=== PATIENT | female | born 1995 | race Caucasian/White ===

== ENCOUNTER 2016-07-24 23:54 | Emergency (ER) | payer OTHER ==
[~2016-07-24] VITALS: Ht 170.2 cm; Wt 81.8 kg
[~2016-07-24 23:54] MED LIST: AMOXICILLIN 50500 MG PO; BENADRYL50 MG PO; BIRTH CONTROL PILLS; FLEXERIL 1010 MG/TAB PO; MEDROL 4MG DOSPA4 MG PO; NAPROSYN500 MG PO; NAPROXEN 3375 MG/TAB PO; NORCO 325 MG-51 TAB PO; PREDNISONE20 MG PO; PROAIR HFA0.09 MG/AC IH; STROMECTOL3 MG PO; ULTRAM 50MG TAB50 MG PO; VENTOLIN0.09 MG IH; ZOFRAN 4MG T4 MG/TAB PO; ZYRTEC 10MG10 MG PO
[2016-07-24 23:56] VITALS: BP 148/86; PULSE 110; TEMP 97.7
[2016-08-14] MEDS ORDERED: AMOXICILLIN 50500 MG PO (18:44)
== END 2016-07-25 00:53 | disposition home or self-care (01) ==
LOC: COL.ER 23:54
DX: H10.9 Unspecified conjunctivitis (principal)

== ENCOUNTER 2016-08-12 23:54 | Emergency (ER) | payer SELFPAY ==
[~2016-08-12] VITALS: Ht 170.2 cm; Wt 84.1 kg
[2016-08-12 23:57] VITALS: BP 136/75; TEMP 98.3
[2016-08-13 00:40] LABS: INFLUENZA B NEGATIVE
[2016-08-13 00:45] VITALS: PULSE 108
[2016-08-14] MEDS ORDERED: AMOXICILLIN 50500 MG PO (18:44)
== END 2016-08-13 00:46 | disposition home or self-care (01) ==
LOC: COL.ER 23:54
PROVIDERS: Physician Assistant
DX: J06.9 Acute upper respiratory infection, unspecified (principal); J45.909 Unspecified asthma, uncomplicated; F17.210 Nicotine dependence, cigarettes, uncomplicated

== ENCOUNTER 2016-08-18 05:57 | Emergency (ER) | payer SELFPAY ==
[~2016-08-18] VITALS: Ht 170.2 cm; Wt 84.1 kg
[2016-08-18 05:59] VITALS: BP 158/76; PULSE 109; TEMP 98.6
[2016-08-18] MEDS ORDERED: NORCO 325 MG-51 TAB PO (06:24)
[2016-08-18] MEDS ORDERED: AMOXICILLIN 50500 MG PO (06:24)
== END 2016-08-18 06:30 | disposition home or self-care (01) ==
LOC: COL.ER 05:57
DX: K08.89 Other specified disorders of teeth and supporting structures (principal); F17.210 Nicotine dependence, cigarettes, uncomplicated; M25.511 Pain in right shoulder; G89.29 Other chronic pain

== ENCOUNTER 2016-09-02 23:05 | Emergency (ER) | payer SELFPAY ==
[~2016-09-02] VITALS: Ht 170.2 cm; Wt 79.5 kg
[2016-09-02 23:24] VITALS: BP 141/70; TEMP 98.2
[2016-09-03] MEDS ORDERED: NORCO 325 MG-51 TAB PO (00:49)
[2016-09-03] MEDS ORDERED: BACTRIM DS 8001 TAB PO (00:49)
[2016-09-03 01:09] VITALS: PULSE 90
== END 2016-09-03 01:10 | disposition home or self-care (01) ==
LOC: COL.ER 23:05
DX: L02.416 Cutaneous abscess of left lower limb (principal)

== ENCOUNTER 2018-05-31 23:33 | Emergency (ER) | payer SELFPAY ==
[~2018-05-31] VITALS: Ht 170.2 cm; Wt 96.4 kg
[~2018-05-31 23:33] MED LIST changes: +BACTRIM DS 8001 TAB PO
[2018-05-31 23:36] VITALS: TEMP 98.7
[2018-05-31 23:59] VITALS: BP 133/90
[2018-06-01 00:05] LABS: BASO % 0.4 % (0.0-2.0); EOS # 0.1 (0.0-0.7); EOS % 0.6 % (0-4.0); GRAN # 6.1 (1.4-6.5); HEMATOCRIT 40.7 % (37.0-47.0); LYMPH # 2.8 (1.2-3.4); LYMPH % 29.7 % (20.0-51.0); MEAN CELL VOLUME 89 fl (80.0-100.0); MEAN CORPUSCULAR HEMOGLOBIN 28 pg (27.0-31.0); MEAN CORPUSCULAR HGB CONC 32 g/dl (33.0-37.0); MEAN PLATELET VOLUME 10.1 fl (7.4-10.4); MONO # 0.5 (0.1-0.6); MONO % 5.1 % (1.7-9.3); PLATELET COUNT 312 K/mm3 (130-400); RED BLOOD COUNT 4.58 M/mm3 (4.10-5.30); REDCELL DISTRIBUTION WIDTH-CV 13.2 % (11.5-14.5)
[2018-06-01 00:26] LABS: ALANINE AMINOTRANSFERASE 26 U/L (9-52); ALBUMIN 3.7 gm/dL (3.5-5.0); ALKALINE PHOSPHATASE 92 U/L (50-136); ANION GAP 4 mmol/L (7-16); AST,SGOT 17 U/L (15-37); BILIRUBIN,TOTAL < 0.1 mg/dL (0.0-1.0); BLOOD UREA NITROGEN 6 mg/dL (7-17); CALCIUM 8.8 mg/dL (8.4-10.2); CARBON DIOXIDE 30 mmol/L (22-30); CHLORIDE 108 mmol/L (98-107); CREATININE, serum 0.74 mg/dL (0.52-1.25); GLUCOSE 110 mg/dL (74-106); POTASSIUM 4.2 mmol/L (3.4-5.0); SODIUM 143 mmol/L (137-145)
[2018-06-01 00:38] LABS: COLLECTION METHOD CLEAN CATCH
[2018-06-01 00:44] LABS: MUCOUS Present /lpf; PH 7 (5-8); SQUAMOUS EPITHELIAL 0-2 /hpf; URINE APPEARANCE Clear; URINE BACTERIA None Seen /hpf; URINE BILIRUBIN Negative (NEGATIVE); URINE BLOOD Negative (NEGATIVE); URINE COLOR Yellow; URINE GLUCOSE Negative (NEGATIVE); URINE KETONE Negative (NEGATIVE); URINE LEUKOCYTE ESTERASE Negative (NEGATIVE); URINE NITRATE Negative (NEGATIVE); URINE PROTEIN(semi-quant) Negative (NEGATIVE); URINE RBC 0-2 /hpf
[2018-06-01 01:10] VITALS: PULSE 86
== END 2018-06-01 01:10 | disposition home or self-care (01) ==
LOC: COL.ER 23:33
PROVIDERS: Emergency Medicine
DX: R10.10 Upper abdominal pain, unspecified (principal); J45.909 Unspecified asthma, uncomplicated; F17.210 Nicotine dependence, cigarettes, uncomplicated

== ENCOUNTER 2020-01-23 13:33 | Emergency (ER) | payer SELFPAY ==
[~2020-01-23] VITALS: Ht 170.2 cm; Wt 65.9 kg
[~2020-01-23 13:33] MED LIST changes: +INDERAL40 MG PO; +ZOFRAN ODT4 MG PO
[2020-01-23 13:37] VITALS: BP 131/72; PULSE 124; TEMP 98.1
== END 2020-01-23 16:32 | disposition home or self-care (01) ==
LOC: COL.ER 13:33
DX: S92.402A Displaced unspecified fracture of left great toe, initial encounter for closed fracture (principal); F17.210 Nicotine dependence, cigarettes, uncomplicated; W22.8XXA Striking against or struck by other objects, initial encounter

== ENCOUNTER 2020-05-28 06:28 | Emergency (ER) | payer SELFPAY ==
[~2020-05-28] VITALS: Ht 170.2 cm; Wt 68.2 kg
[2020-05-28 06:33] VITALS: TEMP 98.1
[2020-05-28 08:05] LABS: COLLECTION METHOD CLEAN CATCH
[2020-05-28 08:12] LABS: BASO % 0.6 % (0.0-2.0); EOS % 0.8 % (0-4.0); GRAN # 2.9 (1.4-6.5); GRAN % 60.7 % (42.2-75.2); HEMOGLOBIN 11.9 g/dl (12.5-16.0); LYMPH # 1.5 (1.2-3.4); LYMPH % 30.4 % (20.0-51.0); MEAN CELL VOLUME 86 fl (80.0-100.0); MEAN CORPUSCULAR HEMOGLOBIN 28 pg (27.0-31.0); MEAN CORPUSCULAR HGB CONC 33 g/dl (33.0-37.0); MEAN PLATELET VOLUME 10.9 fl (7.4-10.4); MONO # 0.4 (0.1-0.6); MONO % 7.5 % (1.7-9.3); PLATELET COUNT 199 K/mm3 (130-400); RED BLOOD COUNT 4.21 M/mm3 (4.10-5.30); REDCELL DISTRIBUTION WIDTH-CV 12.4 % (11.5-14.5)
[2020-05-28 08:15] LABS: MUCOUS Present /lpf; PH 5 (5-8); SQUAMOUS EPITHELIAL 0-2 /hpf; URINE APPEARANCE Clear; URINE BACTERIA None Seen /hpf; URINE BILIRUBIN Negative (NEGATIVE); URINE BLOOD 2+ (NEGATIVE); URINE COLOR Yellow; URINE GLUCOSE Negative (NEGATIVE); URINE KETONE Negative (NEGATIVE); URINE LEUKOCYTE ESTERASE Negative (NEGATIVE); URINE NITRATE Negative (NEGATIVE); URINE PROTEIN(semi-quant) Negative (NEGATIVE); URINE RBC >50 /hpf; URINE UROBILINOGEN Negative (NEGATIVE)
[2020-05-28 08:26] LABS: ALANINE AMINOTRANSFERASE 20 U/L (4-34); ALBUMIN 3.5 gm/dL (3.5-5.0); ALKALINE PHOSPHATASE 114 U/L (50-136); ANION GAP 4 mmol/L (7-16); AST,SGOT 34 U/L (15-37); BILIRUBIN,TOTAL 0.4 mg/dL (0.0-1.0); BLOOD UREA NITROGEN 11 mg/dL (7-17); CALCIUM 8.8 mg/dL (8.4-10.2); CARBON DIOXIDE 27 mmol/L (22-30); CHLORIDE 107 mmol/L (98-107); CREATININE, serum 0.36 (0.52-1.25); GLUCOSE 116 mg/dL (74-106); LIPASE 83 U/L (23-300); POTASSIUM 4.1 mmol/L (3.4-5.0); SODIUM 138 mmol/L (137-145); TOTAL PROTEIN 6.4 gm/dL (6.4-8.2)
[2020-05-28 08:43] LABS: C-REACTIVE PROTEIN < 0.5 mg/dL (0.0-0.9)
[2020-05-28] MEDS ORDERED: ZOFRAN ODT4 MG PO (09:11)
[2020-05-28] MEDS ORDERED: PROTONIX 40MG T40 MG PO (09:11)
[2020-05-28 09:30] VITALS: BP 136/67; PULSE 109
== END 2020-05-28 09:30 | disposition home or self-care (01) ==
LOC: COL.ER 06:28
PROVIDERS: Emergency Medicine
DX: K29.70 Gastritis, unspecified, without bleeding (principal); Z32.02 Encounter for pregnancy test, result negative; Z79.51 Long term (current) use of inhaled steroids
CPT/HCPCS: J2405; J7030

== ENCOUNTER 2020-07-15 18:40 | Emergency (ER) | payer SELFPAY ==
[~2020-07-15] VITALS: Ht 170.2 cm; Wt 72.7 kg
[~2020-07-15 18:40] MED LIST changes: +PROTONIX 40MG T40 MG PO
[2020-07-15 18:48] VITALS: TEMP 98.8
[2020-07-15] MEDS ORDERED: DOXYCYCLINE 10100 MG PO (19:25)
[2020-07-15 19:40] VITALS: BP 133/82; PULSE 130
== END 2020-07-15 20:15 | disposition home or self-care (01) ==
LOC: COL.ER 18:40
DX: S60.511A Abrasion of right hand, initial encounter (principal); S70.312A Abrasion, left thigh, initial encounter; S70.311A Abrasion, right thigh, initial encounter; W55.03XA Scratched by cat, initial encounter

== ENCOUNTER 2020-10-30 09:02 | Emergency (ER) | payer OTHER ==
[~2020-10-30] VITALS: Ht 170.2 cm; Wt 72.7 kg
[~2020-10-30 09:02] MED LIST changes: +DOXYCYCLINE 10100 MG PO
[2020-10-30 09:11] VITALS: TEMP 97.8
[2020-10-30 09:51] LABS: BASO % 0.2 % (0.0-2.0); EOS # 0.1 (0.0-0.7); EOS % 1.9 % (0-4.0); GRAN # 2.2 (1.4-6.5); GRAN % 51.7 % (42.2-75.2); HEMATOCRIT 42.1 % (37.0-47.0); HEMOGLOBIN 13.6 g/dl (12.5-16.0); LYMPH # 1.6 (1.2-3.4); LYMPH % 37.6 % (20.0-51.0); MEAN CELL VOLUME 86 fl (80.0-100.0); MEAN CORPUSCULAR HEMOGLOBIN 28 pg (27.0-31.0); MEAN CORPUSCULAR HGB CONC 32 g/dl (33.0-37.0); MONO # 0.4 (0.1-0.6); MONO % 8.4 % (1.7-9.3); PLATELET COUNT 214 K/mm3 (130-400); REDCELL DISTRIBUTION WIDTH-CV 13.2 % (11.5-14.5)
[2020-10-30 10:01] LABS: ALBUMIN 3.7 gm/dL (3.5-5.0); BILIRUBIN,TOTAL 0.1 mg/dL (0.0-1.0); CALCIUM 9.1 mg/dL (8.4-10.2); CREATININE, serum 0.23 (0.52-1.25); POTASSIUM 4.3 mmol/L (3.4-5.0); TOTAL PROTEIN 7.4 gm/dL (6.4-8.2)
[2020-10-30 10:32] LABS: COLLECTION METHOD CLEAN CATCH
[2020-10-30 10:40] LABS: MUCOUS Present /lpf; PH 5 (5-8); SQUAMOUS EPITHELIAL 0-2 /hpf; URINE APPEARANCE Clear; URINE BACTERIA None Seen /hpf; URINE BILIRUBIN Negative (NEGATIVE); URINE BLOOD Negative (NEGATIVE); URINE COLOR Straw; URINE GLUCOSE Negative (NEGATIVE); URINE KETONE Negative (NEGATIVE); URINE LEUKOCYTE ESTERASE Negative (NEGATIVE); URINE NITRATE Negative (NEGATIVE); URINE PROTEIN(semi-quant) Negative (NEGATIVE); URINE RBC 0-2 /hpf; URINE UROBILINOGEN Negative (NEGATIVE)
[2020-10-30] MEDS ORDERED: PREDNISONE20 MG PO (11:31)
[2020-10-30] MEDS ORDERED: PROAIR HFA0.09 MG/AC IH (11:31)
[2020-10-30] MEDS ORDERED: ZITHROMAX Z PA250 MG PO (11:31)
[2020-10-30 13:44] LABS: ARTERIAL BLD GAS O2 SATURATION 95.8 % (92-100); ARTERIAL BLD GAS TCO2 CT 22.6; ARTERIAL BLOOD GAS BASE EXCESS -3.4 (-2-2); ARTERIAL BLOOD GAS HCO3 21.5 meq/L (22-26); ARTERIAL BLOOD GAS PO2 76.8 mmHg (80-100); ARTERIAL BLOOD GAS pH 7.37 (7.35-7.45)
[2020-10-30 14:30] VITALS: BP 155/52
[2020-10-30 15:09] VITALS: PULSE 123
== END 2020-10-30 15:09 | disposition home or self-care (01) ==
LOC: COL.ER 09:02
PROVIDERS: Family Medicine
DX: J20.9 Acute bronchitis, unspecified (principal); E05.90 Thyrotoxicosis, unspecified without thyrotoxic crisis or storm; F17.210 Nicotine dependence, cigarettes, uncomplicated; Z20.822 Contact with and (suspected) exposure to COVID-19
CPT/HCPCS: J0696; J2930; J7030; J7120; Q9967

== ENCOUNTER 2021-03-21 07:17 | Emergency (ER) | payer SELFPAY ==
[~2021-03-21] VITALS: Ht 170.2 cm; Wt 64.5 kg
[~2021-03-21 07:17] MED LIST changes: +ZITHROMAX Z PA250 MG PO
[2021-03-21 08:48] VITALS: BP 147/88; PULSE 113; TEMP 98
== END 2021-03-21 08:51 | disposition home or self-care (01) ==
LOC: COL.ER 07:17
DX: R19.7 Diarrhea, unspecified (principal)

== ENCOUNTER 2022-01-24 07:53 | Emergency (ER) | payer SELFPAY ==
[~2022-01-24] VITALS: Ht 170.2 cm; Wt 65.9 kg
[2022-01-24 08:00] VITALS: TEMP 97.1
[2022-01-24 09:37] VITALS: BP 160/85; PULSE 109
== END 2022-01-24 09:40 | disposition home or self-care (01) ==
LOC: COL.ER 07:53
DX: B34.9 Viral infection, unspecified (principal); R00.0 Tachycardia, unspecified; Z20.822 Contact with and (suspected) exposure to COVID-19
CPT/HCPCS: J1885